=== PATIENT | male | born 1965 | race Hispanic/Latino ===

== ENCOUNTER 2021-09-27 20:47 | Emergency (ER) | payer SELFPAY ==
[~2021-09-27] VITALS: Ht 167.6 cm; Wt 92.2 kg
[2021-09-27] MEDS ORDERED: ALBUTEROL/IPRATROPIUM 3 ML NEB NEB ONE (21:15)
[2021-09-27] MEDS ORDERED: PREDNISONE 20 MG TAB PO ONE (21:15)
[2021-09-27] MEDS ORDERED: KETOROLAC TROMETHAMINE 30 MG/ML VIAL IV STA (21:40)
[2021-09-27] MEDS ORDERED: NAPROSYN500 MG PO (22:42)
== END 2021-09-27 22:30 | disposition home or self-care (01) ==
LOC: FSED 20:55
DX: R07.9 Chest pain, unspecified (principal); M79.10 Myalgia, unspecified site; R94.31 Abnormal electrocardiogram [ECG] [EKG]; F17.210 Nicotine dependence, cigarettes, uncomplicated
CPT/HCPCS: 71046; 80053; 82553; 84484; 85025; 93005; 99284; J1885